=== PATIENT | male | born 1960 | race Caucasian/White ===

== ENCOUNTER 2024-06-08 11:19 | Emergency (ER) | payer OTHER, MEDICARE ==
[2024-06-08 11:53] VITALS: TEMP 97.6; BMI 30.7
[2024-06-08] MEDS: ASPIRIN 325 MG TABLET PO ONE (12:25)
[2024-06-08 12:26] LABS: BASO % 0.5 % (0-2.0); EOS % 0.3 % (0-4.5); HEMATOCRIT 43.8 % (35.4-49); HEMOGLOBIN 14.4 GM/dL (11.7-16.9); LYMPH % 10.8 % (8-40); MCH 27.8 pg (25.7-33.7); MCHC 32.8 g/dl (32.0-35.9); MEAN CELL VOLUME 84.8 fl (80-96); MEAN PLT VOLUME 8.8 fl (7.5-11.1); MONO % 9.5 % (3.8-10.2); NEUT % 78.9 % (42.8-82.8); PLATELET COUNT 294 10^3/uL (134-434); RBC 5.17 M/mm3 (4.00-5.60); RDW 15.5 % (11.9-15.9); WHITE BLOOD COUNT 10.6 K/mm3 (4.0-10.0)
[2024-06-08 12:31] LABS: PROTHROMBIN TIME (PATIENT) 11.5 SEC (9.7-13.0)
[2024-06-08 12:34] LABS: ACTIVATED PTT 29.5 SECONDS (25.2-36.5)
[2024-06-08 12:44] LABS: POTASSIUM 4.3 mmol/L (3.5-5.1)
[2024-06-08 12:46] LABS: BLOOD UREA NITROGEN 24.2 mg/dL (7-18); CALCIUM 10.1 mg/dL (8.5-10.1)
[2024-06-08 12:47] LABS: ALBUMIN 3.8 g/dl (3.4-5.0)
[2024-06-08 12:50] LABS: CREATININE 1.2 mg/dL (0.55-1.3)
[2024-06-08 12:51] LABS: BILIRUBIN,TOTAL 0.5 mg/dL (0.2-1); TOT PROT 7.4 g/dl (6.4-8.2)
[2024-06-08] MEDS: ASPIRIN 81 MG CHEWABLE TABLETS PO ONE (12:51)
[2024-06-08] MEDS: ACETAMINOPHEN 1000 MG/100 ML BAG IVPB ONE (12:52)
[2024-06-08 13:43] VITALS: BP 148/101; PULSE 90; RESP 23
== END 2024-06-08 13:07 | disposition short-term general hospital (02) ==
LOC: JER 11:19
DX: I21.3 ST elevation (STEMI) myocardial infarction of unspecified site (principal); R07.2 Precordial pain; R06.02 Shortness of breath; Z20.822 Contact with and (suspected) exposure to COVID-19
CPT/HCPCS: 0241U-QW; 36415; 80053; 83735; 84484; 85025; 85610; 85730; 86850; 86900; 86901; 93005; 93010; 99291